=== PATIENT | female | born 2000 | race Two or more races ===

== ENCOUNTER 2024-06-10 12:06 | Emergency (ER) | payer MEDICAID ==
[~2024-06-10] VITALS: Ht 165.1 cm; Wt 65.0 kg
[2024-06-10 12:10] VITALS: O2SAT 100
[2024-06-10] MEDS: LORAZEPAM 1MG TABLET PO ONE (12:45)
[2024-06-10 13:21] VITALS: BP 130/68; PULSE 94; RESP 16; TEMP 36.94740; O2SAT 100
== END 2024-06-10 13:25 | disposition home or self-care (01) ==
LOC: ER 12:06
DX: F15.10 Other stimulant abuse, uncomplicated (principal)
CPT/HCPCS: 99283